=== PATIENT | male | born 1960 | race Caucasian/White ===

== ENCOUNTER 2017-04-14 20:41 | Emergency (ER) | payer OTHER, BC ==
[2017-04-14 21:03] VITALS: PULSE 104
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
[2017-04-14 23:19] VITALS: BP 159/92; O2SAT 96
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
== END 2017-04-14 23:19 | disposition home or self-care (01) ==
LOC: ED 20:41
DX: S00.83XA Contusion of other part of head, initial encounter (principal); R04.0 Epistaxis; V57.5XXA Driver of pick-up truck or van injured in collision with fixed or stationary object in traffic accident, initial encounter; Y93.C2 Activity, hand held interactive electronic device
CPT/HCPCS: 70450; 70486; 71046; 72125; 93005; 99284